=== PATIENT | female | born 1960 ===

== ENCOUNTER → 2024-04-08 | Day surgery (SDC) | payer MEDICARE, OTHER ==
--- NOTE | 2024-05-05 11:44 | MM ---
Reason for Exam: Post Procedure Mammogram. Risk Values: Yamile 5 year model risk: 1.1%. NCI Lifetime model risk: 4.0%. Tissue Density: Left: The breasts are heterogeneously dense, which may obscure small masses. Pathology Description: Location: 4 o'clock. Marker Left Behind. Needle Type: Mammotome The procedure of ultrasound guided core biopsy was explained to the patient. Benefits, alternatives, and risks were discussed. An informed consent was then obtained. A timeout was performed. The patient was placed in supine positioning for imaging and for the procedure. The overlying skin was prepped and draped in usual sterile fashion. Lidocaine was used as anesthetic into the skin and subcutaneous tissue up to area of concern in the left breast. A small skin alia was made with surgical scalpel. Under ultrasound guidance, a 12-gauge vacuum assisted biopsy gun device was used to obtain 5 core samples. A biopsy clip was left in lesion. Hydromark coil core marker was placed. Clip is within the lesion. The patient tolerated the procedure well without any immediate complication. The patient was kept in the radiology department for short stay after the procedure and then discharged home in stable condition. Postprocedure mammogram: The patient was transferred to mammography for physician ordered post procedure mammogram for clip placement verification. Mammography films are unavailable for review during PACS downtime. Impression: Successful ultrasound guided core biopsy of area of concern in the left breast, full pathology results to follow. Recommendations: 1. Recommendations are pending pathology results. Pathology Results: Result: Benign, Fibroadenoma. Pathology and radiology were reviewed. Findings are concordant. LEFT BREAST, 4:00, ULTRASOUND GUIDED CORE BIOPSY: Compatible with fibroadenoma. Overall Assessment: Benign Assessment: MG diagnostic mammo LT wo CAD. - Left: Benign, BI-RAD 2. Management: Diagnostic Mammogram of the left breast in 6 months. Electronically signed and approved by: Robert Gant D.O. Radiologis
== END ==
LOC: RADUSWWP 10:00
PROVIDERS: ATTEND Family Medicine
DX: R92.8 Other abnormal and inconclusive findings on diagnostic imaging of breast
CPT/HCPCS: 77065; 88305

== ENCOUNTER 2024-11-24 10:32 | Day surgery (SDC) | payer MEDICARE ==
[2024-11-23 13:00] VITALS: BMI 27.1
[~2024-11-24 10:32] MED LIST: LIDOCAINE 1% (10MG/ML) FOR IV START INTRADERMA PRN
[2024-11-24] MEDS: IV FLUID CONTINUATION 1,000 ML IV ONE (11:34)
[2024-11-24 11:42] VITALS: TEMP 97.1
[2024-11-24] MEDS: LACTATED RINGERS 1,000 ML IV SCH (11:45)
[2024-11-24] MEDS ORDERED: LIDOCAINE 1% INJ 10MG/ML (20 ML MDV) ONE (12:17)
[2024-11-24] MEDS ORDERED: PROPOFOL 10 MG/ML 20 ML VIAL IV ONE (12:17)
--- NOTE | 2024-11-24 12:29 | P.PCN ---
Date of Procedure: 11/24/24 Procedure(s) Performed: BRIEF HISTORY: Patient is a 61-year-old, pleasant, white female scheduled for an upper endoscopy as a part of evaluation of longstanding history of GERD and intermittent dysphagia to solids. PROCEDURE PERFORMED: Esophagogastroduodenoscopy with dilation. PREOPERATIVE DIAGNOSIS: GERD and intermittent dysphagia to solid. IV sedation per anesthesia. PROCEDURE: After informed consent was obtained, the patient was brought into the endoscopy unit. IV sedation was administered by Anesthesia under continuous monitoring. Initially the Olympus GIF-140 video endoscope was inserted into the mouth. Esophagus intubated without any difficulty. It was gradually advanced into the stomach and duodenum and carefully examined. The bulb and the second part of the duodenum appeared normal. The scope at this time was withdrawn to the stomach, adequately insufflated with air, and upon careful examination, mucosa of the antrum, body, cardia and the fundus appeared normal. The scope was then withdrawn into the esophagus. Moderate size hiatal hernia noted. The GE junction was located at 34 cm from the incisors. There was a distal esophageal stricture identified at the GE junction which was dilated using 15 mm TTS balloon for 30 seconds. There was some oozing identified and further dilation was not performed. There were linear erosions in the distal esophagus consistent with LA grade B reflux esophagitis. The rest of the esophagus appeared normal. The patient tolerated the procedure well. IMPRESSION: 1. Distal esophageal stricture status post balloon dilation using 15 mm TTS balloon as described above. 2. Linear erosions in the distal esophagus consistent with LA grade B reflux esophagitis 3. Moderate size hiatal hernia. RECOMMENDATIONS: The findings of this examination were discussed with the patient as well as her family.. She was advised to be on clear liquids for 2 hours. Start on omeprazole 20 mg daily and follow antireflux measures. Follow- up in the office in 6 weeks
[2024-11-24 12:36] VITALS: RESP 16
[2024-11-24 12:58] VITALS: BP 129/54; PULSE 70
== END 2024-11-24 13:14 | disposition home or self-care (01) ==
LOC: ORWHC2ENDO 10:32
PROVIDERS: ATTEND Internal Medicine Gastroenterology
DX: K22.2 Esophageal obstruction (principal); K21.9 Gastro-esophageal reflux disease without esophagitis; K44.9 Diaphragmatic hernia without obstruction or gangrene; I10 Essential (primary) hypertension; Z87.891 Personal history of nicotine dependence; Z88.0 Allergy status to penicillin; Z79.899 Other long term (current) drug therapy
CPT/HCPCS: 43249; J2003; J2704; C1726